=== PATIENT | male | born 1970 | race Caucasian/White ===

== ENCOUNTER 2020-11-22 16:20 | Inpatient (IN) | payer MEDICARE, OTHER ==
[~2020-11-22] VITALS: Ht 180.3 cm; Wt 104.3 kg
[2020-11-22] MEDS ORDERED: ACETAMINOPHEN 325 MG TABLET PO PRN (17:30)
[2020-11-22] MEDS ORDERED: BLOOD SUGAR DIAGNOSTIC 1 EACH STRIP IN ONE (17:30)
[2020-11-22] MEDS ORDERED: MAGNESIUM HYDROXIDE 30 ML UDC PO PRN (17:30)
[2020-11-22] MEDS ORDERED: MAG HYDROX/AL HYDROX/SIMETH 30 ML UDC PO PRN (17:30)
[2020-11-22] MEDS ORDERED: AZIT250T13 PO (18:11)
[2020-11-22] MEDS ORDERED: DIVA500T2 PO (18:11)
[2020-11-22] MEDS ORDERED: BENZ1TAB7 PO (18:11)
[2020-11-22] MEDS ORDERED: CLOZ100T PO ×2 (18:11)
--- NOTE | 2020-11-22 18:17 | NUR ---
RNRobiCO: ADMITTED A 50 Y/O MALE FROM [facility] ED IN [place]. HE WAS PLACED ON A 5150 HOLD FOR DTS. PER HOLD HE CALLED MENTAL HEALTH HOTLINE FROM HIS HOME IN [place] WHERE HE HAS BEEN LIVING W/ PARENTS FOR THE LAST THREE MONTHS. HE SAID HE GOT STRESSED OUT IN HOME SITUATION. HE STATED THAT NIGHT HE FELT CONFUSED AND PARANOID SO HE THINK TO COMMIT SUICIDE BY USING A RAZOR AND CUT HIMSELF. HE DENIED HOMICIDAL IDEATION. UPON FACE TO FACE EVALUATION, HE IS A/OX4, CALM AND COOPERATIVE . HE DENIED FEELING OF HOPELESSNESS AND SUICIDAL IDEATION. HE ALSO DENIED HOMICIDAL IDEATION. HE SAID LONG TIME AGO HE HAD AH/VH. HE WAS ADVISED OF HIS RIGHTS A PATIENT. ALL BELONGINGS WERE SCREENED FOR CONTRABAND AND KEPT TO SAFE. HIS SKIN IS CLEAN AND INTACT. DR SORIA MADE AWARE OF HIS ADMISSION.
--- NOTE | 2020-11-22 18:35 | NUR ---
RN-CO: Mariely SUAREZ PUPIL PERSONNEL SERVICES DIRECTOR MADE AWARE OF THE ADMISSION, SHE SAID SHE WILL CHECK HER LIST.
[2020-11-22 19:58] VITALS: BP 129/83
[2020-11-22] MEDS: TEMAZEPAM 7.5 MG CAPSULE PO PRN (22:05)
[2020-11-23 07:37] LABS: BASOPHILS % (AUTO) 0.5 % (0.0-2.0); EOSINOPHILS % (AUTO) 1.1 % (0.0-6.0); HEMATOCRIT 42 % (39-51); HEMOGLOBIN 14.3 g/dL (13.5-17.5); LYMPHOCYTES # (AUTO) 2.4 /CMM (0.8-4.8); LYMPHOCYTES % (AUTO) 28.1 % (20.0-44.0); MEAN CORPUSCULAR HGB CONC 34 g/dl (31.0-36.0); MEAN CORPUSCULAR VOLUME 94 fL (80-96); MONOCYTES # (AUTO) 0.6 /CMM (0.1-1.30); MONOCYTES % (AUTO) 6.9 % (2.0-12.0); NEUTROPHILS # (AUTO) 5.5 /CMM (1.8-8.9); NEUTROPHILS % (AUTO) 63.4 % (43.0-81.0); PLATELET COUNT (AUTO) 185 /CMM (150-450); RED BLOOD CELL COUNT(AUTO) 4.49 MIL/uL (4.5-6.0); WHITE BLOOD COUNT (AUTO) 8.6 K/uL (4.3-11.0)
[2020-11-23 08:00] VITALS: BP 126/80
[2020-11-23 08:11] LABS: CALCIUM, SERUM 8.5 mg/dL (8.5-10.1); CREATININE 0.8 mg/dL (0.6-1.3); PHOSPHORUS 3.4 mg/dL (2.5-4.9); POTASSIUM 4.2 mmol/L (3.5-5.1)
[2020-11-23 08:37] LABS: THYROID STIMULATING HORMONE 2.43 uIU/mL (0.358-3.74)
[2020-11-23] MEDS: NICOTINE PATCH (14MG) 14 MG PATCH.TD24 TD SCH (08:44)
[2020-11-23] MEDS: AZITHROMYCIN 250 MG TABLET PO SCH (08:44)
--- NOTE | 2020-11-23 12:42 | NUR ---
Hospice Executive Director Contact: SW spoke with patient's case supervisor from [facility] team Octavia ([phone]) who is involved in his case and will be helping with discharge planning. Octavia stated that she is trying to find out whether or not the patient is conserved through [facility] or not. She stated that she has been working with the patient for the past two months. This sw informed her of the patient's concerns about not going back to his mom's house and he would like to stay in [facility] and go to a SNF. Octavia and this sw discussed that if the patient is not conserved the patient can go to a SNF in [facility] as he wishes.
--- NOTE | 2020-11-23 12:42 | NUR ---
HERLINDA Initial Discharge Plan: Patient was currently residing at his mom's and step-fathers house in [place] however he does not want to return back there. Patient would like SNF placement in [facility]. Patient has a Client Support Representative from [facility] arie Dudley ([phone]) who is involved in his case and will be helping with discharge planning. HERLINDA will continue to work with patient, family, and MD to ensure a safe and proper discharge plan.
--- NOTE | 2020-11-23 13:01 | NUR ---
Substance Abuse Intervention: Patient was provided with a brief substance abuse intervention and referred to the following substance abuse programs: [facility] ([phone]); [facility] [address] [place] [address] ([phone]); [facility] [address] [facility] [address] ([phone]); [facility] ([phone]); [facility] ([phone]); [facility] ([phone]); [facility] ([phone]).
[2020-11-23] MEDS: LORAZEPAM 0.5 MG TABLET PO PRN (13:21)
--- NOTE | 2020-11-23 13:22 | NUR ---
RN-CO: ATIVAN 1 MG GIEN FOR ANXIETY.
--- NOTE | 2020-11-23 13:33 | NUR ---
Heavy Equipment Operating Engineer Contact SW spoke with patients assistant case manager from [facility] Octavia ([phone]) who stated patient is not conserved and can go anywhere hed like.
[2020-11-23 16:00] VITALS: BP 126/77
[2020-11-23 20:13] VITALS: BP_SYST 129; BP_SYST 146; BP_DIAS 83
[2020-11-23] MEDS: DIVALPROEX SODIUM 500 MG TABLET.DR PO SCH (21:05)
[2020-11-23] MEDS: CLOZAPINE 100 MG TABLET PO SCH (21:05)
[2020-11-24 08:00] VITALS: BP 103/72
[2020-11-24] MEDS: NICOTINE PATCH (14MG) 14 MG PATCH.TD24 TD SCH (09:00)
--- NOTE | 2020-11-24 09:00 | NUR ---
RN NOTE- WITHDRAWN, ISOLATIVE PO INTAKE GOOD MED COMPLIANT DENIES ALL
[2020-11-24] MEDS: DIVALPROEX SODIUM 500 MG TABLET.DR PO SCH ×2 (09:01→20:40)
[2020-11-24] MEDS: BENZTROPINE MESYLATE (1 MG) 1 MG TABLET PO SCH ×2 (09:01→16:57)
[2020-11-24] MEDS: CLOZAPINE 100 MG TABLET PO SCH ×2 (09:01→21:10)
[2020-11-24] MEDS: AZITHROMYCIN 250 MG TABLET PO SCH (09:01)
[2020-11-24] MEDS: LORAZEPAM 0.5 MG TABLET PO PRN (10:42)
--- NOTE | 2020-11-24 10:42 | NUR ---
RN NOTE- ANXIETY RESTLESSNESS. ATIVAN 1 MG GIVEN
--- NOTE | 2020-11-24 13:22 | NUR ---
Individual Counseling: workers compensation defense attorney met with patient for brief counseling to help address patients presenting problem SI. Patient denies SI. Patient was hyperverbal and tangential. Patient was constantly stating he wants to talk to his mother. This SW helped pt contact mother. Patient refused individual counseling at this moment and just wanted assistance to contact family.
[2020-11-24 16:00] VITALS: BP 112/54
--- NOTE | 2020-11-24 16:18 | NUR ---
Access Specialist: Marlene from [facility] ([phone]) will help with mental health provider if pt goes back home.
[2020-11-24 20:00] VITALS: BP 117/69
--- NOTE | 2020-11-25 07:08 | NUR ---
RN NOTES: PT. RESTING HIS BED, NO ACUTE DISTRESS NOTES , NO CHANGE OF CONDITION NOTED , DENIES ANY PAIN DISCOMFORT AT THIS TIME , ALL NEEDS ATTENDED AND ANTICIPATED, WILL ENDORSE TO DAY NURSE FOR CONTINUITY OF CARE .
[2020-11-25 08:00] VITALS: BP 113/58
[2020-11-25] MEDS: NICOTINE PATCH (14MG) 14 MG PATCH.TD24 TD SCH (08:14)
[2020-11-25] MEDS: BENZTROPINE MESYLATE (1 MG) 1 MG TABLET PO SCH ×2 (08:14→17:19)
[2020-11-25] MEDS: DIVALPROEX SODIUM 500 MG TABLET.DR PO SCH ×2 (08:15→21:11)
[2020-11-25] MEDS: AZITHROMYCIN 250 MG TABLET PO SCH (08:15)
[2020-11-25] MEDS: CLOZAPINE 100 MG TABLET PO SCH ×2 (08:15→21:11)
[2020-11-25 16:00] VITALS: BP 120/87
[2020-11-25 20:03] VITALS: BP 125/73
[2020-11-26] MEDS: TEMAZEPAM 7.5 MG CAPSULE PO PRN ×2 (00:36→23:09)
--- NOTE | 2020-11-26 00:37 | NUR ---
RN NOTES : INSOMNIA PT. UNABLE TO SLEEP RESTORIL 15 MG PO PRN GIVEN PER PT. REQUEST , WILL CONTINUE TO MONITOR.
[2020-11-26 08:00] VITALS: BP 104/63
[2020-11-26] MEDS: CLOZAPINE 100 MG TABLET PO SCH ×2 (08:47→21:11)
[2020-11-26] MEDS: DIVALPROEX SODIUM 500 MG TABLET.DR PO SCH ×2 (08:48→20:54)
[2020-11-26] MEDS: AZITHROMYCIN 250 MG TABLET PO SCH (08:48)
[2020-11-26] MEDS: BENZTROPINE MESYLATE (1 MG) 1 MG TABLET PO SCH ×2 (08:48→16:25)
[2020-11-26] MEDS: NICOTINE PATCH (14MG) 14 MG PATCH.TD24 TD SCH (08:49)
[2020-11-26 16:00] VITALS: BP 109/58
[2020-11-26 20:00] VITALS: BP 127/72
--- NOTE | 2020-11-26 23:10 | NUR ---
RN NOTES : INSOMNIA PT. UNABLE TO SLEEP RESTORIL 15 MG PO PRN GIVEN PER PT. REQUEST , WILL CONTINUE TO MONITOR.
[2020-11-27 08:00] VITALS: BP 145/61
[2020-11-27] MEDS: DIVALPROEX SODIUM 500 MG TABLET.DR PO SCH ×2 (08:15→21:41)
[2020-11-27] MEDS: BENZTROPINE MESYLATE (1 MG) 1 MG TABLET PO SCH ×2 (08:15→17:39)
[2020-11-27] MEDS: NICOTINE PATCH (14MG) 14 MG PATCH.TD24 TD SCH (08:15)
[2020-11-27] MEDS: CLOZAPINE 100 MG TABLET PO SCH ×2 (08:16→21:42)
--- NOTE | 2020-11-27 11:46 | NUR ---
Individual Intervention: SW met with the pt in the hallway. Pt informed the SW that he wanted to be provided with options for SNF discharges in the [place] region. SW stated that she has a facility in mind called [facility] and SW stated that she will send a referral. SW inquired about whether or not she has permission to speak to the pts mother about his discharge as she left a voicemail for the SW asking for an update. Pt stated that the SW can speak to the pts mom about his discharge but nothing specific at this time but stated that he would not like to speak to her. SW stated that she will respect his wishes.
--- NOTE | 2020-11-27 12:00 | NUR ---
SNF Referral: HERLINDA faxed a referral to [facility] with attention to Faiza to the fax number: [phone].
--- NOTE | 2020-11-27 12:37 | NUR ---
Family Contact: SW called the pts mother, Mildred ([phone]), and informed her that the pt is not willing to return home at this time and that he would like SNF placement. Pts mother became tearful on the phone and stated that she does not know why the pt is acting this way. SW stated that she will speak to the pt about his family dynamics and attempt to get permission to allow the SW to give her the location that the pt will be discharged to.
--- NOTE | 2020-11-27 13:25 | NUR ---
Catalogue Librarian Contact: Keila neelam [facility] ([phone]) contacted the SW and stated that she wanted an update on the pts condition and behaviors. SW provided her with information and informed her of the pts discharge plan to SNF. Catalogue Librarian stated that she will call back in a few days to confirm the placement.
[2020-11-27 16:00] VITALS: BP 130/82
[2020-11-27 20:47] VITALS: BP 112/74
[2020-11-28] MEDS: CALCIUM CARBONATE 500 MG TAB.CHEW PO PRN (02:22)
[2020-11-28 08:00] VITALS: BP 109/50
[2020-11-28] MEDS: BENZTROPINE MESYLATE (1 MG) 1 MG TABLET PO SCH ×2 (08:20→17:45)
[2020-11-28] MEDS: CLOZAPINE 100 MG TABLET PO SCH ×2 (08:20→21:25)
[2020-11-28] MEDS: DIVALPROEX SODIUM 500 MG TABLET.DR PO SCH ×2 (08:20→21:24)
[2020-11-28] MEDS: NICOTINE PATCH (14MG) 14 MG PATCH.TD24 TD SCH (08:21)
--- NOTE | 2020-11-28 11:49 | NUR ---
Probable Cause Hearing: Pts 5250 hold was upheld for grave disability.
[2020-11-28 16:00] VITALS: BP 113/61
[2020-11-28 21:01] VITALS: BP_SYST 104; BP_SYST 130; BP_DIAS 63; BP_DIAS 72
[2020-11-29 08:00] VITALS: BP 125/75
[2020-11-29] MEDS: NICOTINE PATCH (14MG) 14 MG PATCH.TD24 TD SCH (08:53)
[2020-11-29] MEDS: BENZTROPINE MESYLATE (1 MG) 1 MG TABLET PO SCH ×2 (08:53→16:23)
[2020-11-29] MEDS: CALCIUM CARBONATE 500 MG TAB.CHEW PO PRN ×2 (08:53→16:23)
[2020-11-29] MEDS: CLOZAPINE 100 MG TABLET PO SCH ×2 (08:53→21:45)
[2020-11-29] MEDS: DIVALPROEX SODIUM 500 MG TABLET.DR PO SCH ×2 (08:53→21:44)
[2020-11-29 16:00] VITALS: BP 125/73
[2020-11-29 20:40] VITALS: BP 134/75
[2020-11-29] MEDS: TEMAZEPAM 7.5 MG CAPSULE PO PRN (22:16)
--- NOTE | 2020-11-29 22:16 | NUR ---
PT. UNABLE TO SLEEP GIVEN PRN RESTORIL 15 MG PO PER PT REQUEST . WILL CONTINUE TO MONITOR.
[2020-11-30 08:00] VITALS: BP 114/72
[2020-11-30] MEDS: NICOTINE PATCH (14MG) 14 MG PATCH.TD24 TD SCH (08:05)
[2020-11-30] MEDS: BENZTROPINE MESYLATE (1 MG) 1 MG TABLET PO SCH ×2 (08:06→16:14)
[2020-11-30] MEDS: CALCIUM CARBONATE 500 MG TAB.CHEW PO PRN ×2 (08:06→16:14)
[2020-11-30] MEDS: CLOZAPINE 100 MG TABLET PO SCH ×2 (08:06→21:02)
[2020-11-30] MEDS: DIVALPROEX SODIUM 500 MG TABLET.DR PO SCH ×2 (08:06→21:02)
--- NOTE | 2020-11-30 12:18 | NUR ---
Individual Intervention: SW met with the pt in the hallway and informed him that he was accepted to the facility called [facility] and that once the MD clears the pt for discharge he will be discharged. SW stated that she has been speaking to the pts mother and that she would really want to be involved in the pts treatment. Pt stated that he needs more time to think about whether or not he wants assistance.
[2020-11-30 16:00] VITALS: BP 125/81
--- NOTE | 2020-11-30 19:30 | NUR ---
GPS RN NOTE, RECEIVED PATIENT AWAKE AND IN ROOM, NO S/S OR COMPLAINTS OF PAIN AT THIS TIME. PATIENT IS DISPLAYING NO S/S OF APPARENT DISTRESS AT THIS TIME. PATIENT BREATHING IS UNLABORED WITH EQUAL RISE AND FALL OF THE CHEST. PATIENT IS ALERT AND ORIENTED X 3 ON ROOM AIR WITH A SPO2 97%. PATIENT IS COMPLIANT WITH MEDICATIONS, CALM, FOCUSED ON DISCHARGE, HYPERVERBAL AT TIMES, AND COOPERATIVE. PATIENT DENIES SUICIDAL AND HOMICIDAL IDEATIONS AT THIS TIME. PATIENT ASSISTED WITH TURNING AND REPOSITIONING Q2HR AND PRN FOR COMFORT AND CIRCULATION. PATIENT HAS NO NEEDS AT THIS TIME. PATIENT EDUCATED ON THE USE OF THE CALL [facility]. WILL CONTINUE TO MONITOR THIS PATIENT Q15 MINUTES WITH THE HELP OF STAFF TO MAINTAIN SAFETY.
[2020-11-30 20:25] VITALS: BP 133/84
[2020-11-30] MEDS: TEMAZEPAM 7.5 MG CAPSULE PO PRN (23:49)
--- NOTE | 2020-11-30 23:49 | NUR ---
GPS RN NOTE, PATIENT HAS A COMPLAINT OF NOT BEING ABLE TO SLEEP AND IS REQUESTING RESTORIL AT THIS TIME. PATIENT VITAL SIGNS ARE STABLE. GAVE RESTORIL 15 MG PO HS PRN ORDERED. WILL REASSESS FOR INSOMNIA AND I WILL CONTINUE TO MONITOR THIS PATIENT.
[2020-12-01] MEDS: LORAZEPAM 0.5 MG TABLET PO PRN (02:32)
--- NOTE | 2020-12-01 02:32 | NUR ---
GPS RN NOTE, PATIENT HAS A COMPLAINT OF FEELING ANXIOUS AND IS REQUESTING ATIVAN AT THIS TIME. PATIENT VITAL SIGNS ARE STABLE. GAVE ATIVAN 1 MG PO Q4HR PRN ORDERED. WILL REASSESS FOR ANXIETY AND I WILL CONTINUE TO MONITOR THIS PATIENT.
--- NOTE | 2020-12-01 07:30 | NUR ---
RN Open Notes Patient is sleeping in bed room air with no signs of distress Spo2 99%. No signs or complain of pain at this time. Safety measures are applied, bed is locked low position, side rails up x 2 for safety call light within reach. Will continue to monitor.
[2020-12-01 08:00] VITALS: BP 128/61
[2020-12-01] MEDS: NICOTINE PATCH (14MG) 14 MG PATCH.TD24 TD SCH ×2 (08:34→08:46)
[2020-12-01] MEDS: CLOZAPINE 100 MG TABLET PO SCH ×2 (08:34→21:36)
[2020-12-01] MEDS: DIVALPROEX SODIUM 500 MG TABLET.DR PO SCH ×2 (08:34→20:32)
[2020-12-01] MEDS: BENZTROPINE MESYLATE (1 MG) 1 MG TABLET PO SCH ×2 (08:34→17:01)
[2020-12-01 16:00] VITALS: BP 110/65
[2020-12-01 20:11] VITALS: BP 137/80
[2020-12-01] MEDS: TEMAZEPAM 7.5 MG CAPSULE PO PRN (22:35)
[2020-12-02] MEDS: CALCIUM CARBONATE 500 MG TAB.CHEW PO PRN ×2 (00:23→08:23)
[2020-12-02 08:00] VITALS: BP 105/74
[2020-12-02] MEDS: DIVALPROEX SODIUM 500 MG TABLET.DR PO SCH ×3 (08:23→16:05)
[2020-12-02] MEDS: NICOTINE PATCH (14MG) 14 MG PATCH.TD24 TD SCH (08:23)
[2020-12-02] MEDS: BENZTROPINE MESYLATE (1 MG) 1 MG TABLET PO SCH ×2 (08:23→16:05)
[2020-12-02] MEDS: CLOZAPINE 100 MG TABLET PO SCH ×2 (08:24→21:16)
[2020-12-02 16:00] VITALS: BP 108/71
[2020-12-02 20:08] VITALS: BP 123/73
[2020-12-03 08:00] VITALS: BP 102/64
[2020-12-03] MEDS: BENZTROPINE MESYLATE (1 MG) 1 MG TABLET PO SCH ×2 (08:24→16:03)
[2020-12-03] MEDS: CLOZAPINE 100 MG TABLET PO SCH ×2 (08:24→21:03)
[2020-12-03] MEDS: NICOTINE PATCH (14MG) 14 MG PATCH.TD24 TD SCH (08:24)
[2020-12-03] MEDS: DIVALPROEX SODIUM 500 MG TABLET.DR PO SCH ×3 (08:24→16:03)
[2020-12-03 16:00] VITALS: BP 137/72
[2020-12-03 20:00] VITALS: BP 119/78
[2020-12-04 08:00] VITALS: BP 103/58
[2020-12-04] MEDS: BENZTROPINE MESYLATE (1 MG) 1 MG TABLET PO SCH ×2 (08:58→16:57)
[2020-12-04] MEDS: NICOTINE PATCH (14MG) 14 MG PATCH.TD24 TD SCH (08:59)
[2020-12-04] MEDS: CLOZAPINE 100 MG TABLET PO SCH ×2 (08:59→21:10)
[2020-12-04] MEDS: DIVALPROEX SODIUM 500 MG TABLET.DR PO SCH ×3 (08:59→16:57)
--- NOTE | 2020-12-04 09:00 | NUR ---
RN NOTE- PT ISOLATIVE MED COMPLIANT BRIGHT AFFECT AT TIMES INCONGRUENT MINIMAL INTERACTION THIS MORNING INTAKE GOOD
--- NOTE | 2020-12-04 12:52 | NUR ---
Family Contact: HERLINDA called the pts mother, Mildred ([phone]), and informed her that the pt does not have a discharge date as of right now but he does have placement. HERLINDA stated that she is going to continue working with the pt and work on his relationship with his family.
[2020-12-04 16:00] VITALS: BP 122/82
--- NOTE | 2020-12-04 17:38 | NUR ---
RN NOTES SWAB SPECIMEN OBTAINED FOR RAPID COVID TESTING.
[2020-12-04 19:40] VITALS: BP 129/91
[2020-12-04] MEDS: TEMAZEPAM 7.5 MG CAPSULE PO PRN (22:31)
[2020-12-05 08:00] VITALS: BP 108/67
[2020-12-05] MEDS: NICOTINE PATCH (14MG) 14 MG PATCH.TD24 TD SCH (09:14)
[2020-12-05] MEDS: BENZTROPINE MESYLATE (1 MG) 1 MG TABLET PO SCH (09:14)
[2020-12-05] MEDS: DIVALPROEX SODIUM 500 MG TABLET.DR PO SCH ×2 (09:14→13:00)
[2020-12-05] MEDS: CLOZAPINE 100 MG TABLET PO SCH (09:15)
--- NOTE | 2020-12-05 11:10 | NUR ---
Family Contact: HERLINDA called the pts mother, Mildred ([phone]), and informed her that the pt is being discharged today.
--- NOTE | 2020-12-05 11:12 | NUR ---
Discharge Note: Pt will be discharged to [facility] located at [address] [place] [address]; . Pt will be transported via [facility] at 1PM. Pt did not want his mother, Mildred ([phone]), to be informed of the placement. Upon discharge, the pt appears to be alert and oriented x4 (time, place, self and situation). Pt appears to be in a euthymic mood and presents with a calm affect. Pt denies both suicidal and homicidal ideation as well as auditory and visual hallucinations. Pt appears to be disheveled and ungroomed yet appropriately dressed. Pt appears to be ambulatory with a steady gait. Pt will continue to be under the care of his psychiatrist, Dr. Justice, located at [address] [place] [address]; and inbound customer service agent, Dr. Santillan, located at [address] [facility] [address] [address]; . Pt signed the Choice of Vendor form which was placed in the chart. The multidisciplinary exit care form was done, printed, signed, and given to the patient.
[2020-12-05 16:00] VITALS: BP 121/81
--- NOTE | 2020-12-05 16:00 | NUR ---
RESET MERCHANDISER NOTE:[facility] at [facility] [facility] in stable condition report given to Helen AVILA .Pt Compliant with medications ,cooperative with treatment plans .Patient denies suicidal ideations ,homicidal ideations and auditory/visual hallucinations .Behavior improves ,psychiatric treatment plans met educate patient about after care plan (exit -care) and copy provided .Returned belongings to patient .Patient discharged with ambulance at 16:00.
--- NOTE | 2020-12-05 17:32 | NUR ---
and GILES TIPTON DNP aware of discharge with discharge orders.
== END 2020-12-05 16:00 | DRG 885 ==
LOC: GPS 16:20
PROVIDERS: ADMIT Psychiatry & Neurology Psychiatry; ATTEND Registered Nurse
DX: F25.9 Schizoaffective disorder, unspecified (principal); J18.9 Pneumonia, unspecified organism; R45.851 Suicidal ideations; F29 Unspecified psychosis not due to a substance or known physiological condition; F39 Unspecified mood [affective] disorder; F17.210 Nicotine dependence, cigarettes, uncomplicated; E66.9 Obesity, unspecified; F32.9 Major depressive disorder, single episode, unspecified; F41.9 Anxiety disorder, unspecified; Z68.32 Body mass index [BMI] 32.0-32.9, adult; Z71.3 Dietary counseling and surveillance; Z71.6 Tobacco abuse counseling; F10.20 Alcohol dependence, uncomplicated; F19.10 Other psychoactive substance abuse, uncomplicated; Z20.822 Contact with and (suspected) exposure to COVID-19
CPT/HCPCS: 36415; 80048-TC; 80061-TC; 80164-TC; 83735-TC; 84100-TC; 84443-TC; 85025-TC; 87081-TC